=== PATIENT | female | born 1960 | race Caucasian/White ===

== ENCOUNTER 2018-10-19 15:19 | Inpatient (IN) | payer OTHER ==
[~2018-10-19] VITALS: Ht 160 cm; Wt 62.2 kg
[~2018-10-19 15:19] MED LIST: ACET325T33 PO; CALC600T24 PO; CALC600T5 PO; CIPR-193 PO; LISI-313 PO; OLAN2.5T28 PO
[2018-10-19 17:27] VITALS: BP 134/85; RESP 18
[2018-10-19] MEDS ORDERED: NACL 0.9% 3 ML SYG IV SCH (17:30)
[2018-10-19] MEDS ORDERED: HYDROCODONE/APAP (5/325) TAB PO PRN (17:30)
[2018-10-19] MEDS ORDERED: morphine 2 MG INJ IV PRN (17:30)
[2018-10-19] MEDS ORDERED: ONDANSETRON 4 MG INJ IV PRN (17:30)
[2018-10-19] MEDS ORDERED: DOCUSATE SODIUM 100 MG CAP PO PRN (17:30)
[2018-10-19] MEDS ORDERED: ACETAMINOPHEN 325 MG TAB PO PRN (17:30)
[2018-10-19] MEDS ORDERED: LORAZEPAM 2 MG INJ IV ONE (18:00)
[2018-10-19] MEDS ORDERED: LABETALOL HCL 20MG INJ IV PRN (18:00)
[2018-10-19] MEDS ORDERED: HALOPERIDOL 5 MG INJ IM PRN (18:00)
--- NOTE | 2018-10-19 18:00 | HP ---
Date/Time of Note Date/Time of Note DATE: 10/19/18 TIME: 17:50 Assessment/Plan VTE Prophylaxis SCD contraindicated: low risk/ambulating Pharmacological prophylaxis: NA/contraindicated Pharm contraindication: low risk/ambulating Assessment/Plan Hospital Course Chief complaint Altered mental status History present illness this is a 58-year-old patient female who was apparently in her usual state of health. Her neighbors found her to be agitated altered over the last 2 days. Apparently today she was looking for her room. Unable to concentrate on answering questions. I am unable to contact the neighbor or her son for details. Patient is awake alert but not following commands due to agitation. Try to get out of bed. Presently I just met with her daughter. No recent travel injuries. No recent doctor visits. Patient does not really take any medicines except for vitamins. A week ago patient had a mechanical fall and hit her leg but there is no syncope or head injury. Patient usually uses a wheelchair. At [place] [facility] signs are stable CAT scan of the brain did not show any acute process. Potassium a little low. Ketones little high. PMH Stroke 15 years ago post fall Hypertension on diet controlled measures Past surgical history Hardware fracture from her fall; lower extremity Social history No noted drugs alcohol Family history Daughter states mom had cancer Father heart disease has to get an elderly age. Review of systems Unable to ascertain due to patient cooperation Home medications To be determined PE No pallor possible mild droop no adenopathy no carotid bruits Regular no mrg Clear Benign No edema Neuro patient not cooperating with exam due to agitation but appears grossly nonfocal. Assessment and plan 1. Acute agitation, unknown etiology. CAT scan negative for any bleed. No evidence of seizure activity or tongue bite. Consult neurology. Check B12 level start Zyprexa. Urine tox screen unremarkable from [facility] 2. History of stroke 3. Debility 4. Chronic hypertension, consider hypertensive encephalopathy HPI/ROS Admit Date/Time Admit Date/Time Oct 19, 2018 at 16:44 PMH/Family/Social Past Medical History Medications Current Medications Sodium Chloride 1,000 ml @ 100 mls/hr Q10H IV ; Start 10/19/18 at 17:17; Status UNV IV Flush (NS 3 ml) 3 ml PER PROTOCOL IV ; Start 10/19/18 at 17:30; Status UNV Ondansetron HCl (Zofran Inj) 4 mg Q6H PRN IV NAUSEA/VOMITING; Start 10/19/18 at 17:30; Status UNV Acetaminophen (Tylenol Tab) 650 mg Q6H PRN PO .PAIN 1-3 OR TEMP; Start 10/19/18 at 17:30; Status UNV Acetaminophen/ Hydrocodone Bitart ([place] (5/325)) 1 tab Q6H PRN PO .MOD PAIN 4- 6; Start 10/19/18 at 17:30; Status UNV Morphine Sulfate (morphine) 2 mg Q4H PRN IV .SEVERE PAIN 7-10; Start 10/19/18 at 17:30; Status UNV Docusate Sodium (Colace) 100 mg Q12H PRN PO .CONSTIPATION; Start 10/19/18 at 17:30; Status UNV Famotidine (Pepcid) 20 mg Q12 PO ; Start 10/19/18 at 21:00; Status UNV Enoxaparin Sodium (Lovenox) 40 mg DAILY SC ; Start 10/20/18 at 09:00; Status UNV Coded Allergies: No Known Allergies (Verified Adverse Reaction, 11/01/12) Exam/Review of Systems Vital Signs Vitals Vital Signs Date Temp Pulse Resp B/P (MAP) Pulse Ox O2 O2 Flow FiO2 Time Delivery Rate 10/19/18 98.0 18 134/85 92 Room Air 17:27 (101) DAVID MCGHEE MD Oct 19, 2018 18:00
[2018-10-19 19:16] VITALS: BP 111/48; PULSE 100; RESP 18
[2018-10-19] MEDS: SOD CHLORIDE 0.9% 1,000 ML IV SCH (20:29)
[2018-10-19] MEDS: OLANZAPINE 2.5 MG TAB PO SCH (21:09)
[2018-10-19] MEDS: FAMOTIDINE 20 MG TAB PO SCH (21:09)
[2018-10-19 21:35] VITALS: Ht 160 cm; Wt 62.2 kg
[2018-10-19 23:29] VITALS: BP 148/78; PULSE 99; RESP 18
[2018-10-20] MEDS: SOD CHLORIDE 0.9% 1,000 ML IV SCH ×2 (03:17→05:29)
[2018-10-20 03:21] VITALS: BP 137/60; PULSE 71; RESP 18
[2018-10-20 07:39] VITALS: BP 136/63; PULSE 65; RESP 19
[2018-10-20] MEDS: FAMOTIDINE 20 MG TAB PO SCH (09:20)
[2018-10-20] MEDS: OLANZAPINE 2.5 MG TAB PO SCH ×2 (09:20→20:57)
[2018-10-20] MEDS: ENOXAPARIN 40 MG/0.4 ML SYG SC SCH (09:25)
[2018-10-20 11:35] VITALS: BP 130/61; PULSE 77; RESP 19
--- NOTE | 2018-10-20 17:58 | PN ---
Date/Time of Note Date/Time of Note DATE: 10/20/18 TIME: 17:56 Assessment/Plan VTE Prophylaxis Risk score (from Ns)>0 risk: 1 SCD applied (from Ns): Yes SCD contraindicated: low risk/ambulating Pharmacological prophylaxis: LMWH Lines/Catheters IV Catheter Type (from Nrs): Peripheral IV Assessment/Plan Hospital Course Assessment and plan 1. Ac agitation/ psychosis, ukn etio. CT negative for bleed. No seizure/ tongue bite. Consulted neurology. start Zyprexa. 2. History of stroke 3. Debility 4. Chr hypertension, consider hypertensive encephalopathy S: Less agitation. Awake alert follows commands. O: Vital signs stable PE No pallor; mild droop likely old Regular no mrg Clear Benign No edema Neuro patient not cooperating with exam due to agitation but appears grossly nonfocal. Result Diagram: 10/20/18 0710/20/18725 Results 24hrs Laboratory Tests Test 10/19/18 18:52 10/20/18 07:17 10/20/18 07:26 Folate > 20.0 H Rapid Plasma Reagin NONREACTIVE White Blood Count 6.5 Red Blood Count 4.53 Hemoglobin 14.5 Hematocrit 45.1 Mean Corpuscular Volume 99.6 Mean Corpuscular Hemoglobin 32.0 Mean Corpuscular Hemoglobin Concent 32.2 Red Cell Distribution Width 11.7 Platelet Count 256 Mean Platelet Volume 10.4 Immature Granulocytes % 0.200 Neutrophils % 66.5 Lymphocytes % 18.1 Monocytes % 11.1 H Eosinophils % 3.5 Basophils % 0.6 Nucleated Red Blood Cells % 0.0 Immature Granulocytes # 0.010 Neutrophils # 4.3 Lymphocytes # 1.2 Monocytes # 0.7 Eosinophils # 0.2 Basophils # 0.0 Nucleated Red Blood Cells # 0.0 Prothrombin Time 12.4 Prothrombin Time Ratio 1.0 INR International Normalized Ratio 0.91 Sodium Level 141 Potassium Level 3.6 Chloride Level 109 Carbon Dioxide Level 30 Anion Gap 2 L Blood Urea Nitrogen 13 Creatinine 0.62 Est Glomerular Filtrat Rate mL/min > 60 Glucose Level 88 Hemoglobin A1c 5.4 Calcium Level 9.2 Total Bilirubin 0.7 Direct Bilirubin 0.00 Indirect Bilirubin 0.7 Aspartate Amino Transf (AST/SGOT) 30 Alanine Aminotransferase (ALT/SGPT) 26 Alkaline Phosphatase 141 H Total Protein 7.8 Albumin 3.9 Globulin 3.90 H Albumin/Globulin Ratio 1.00 Vitamin B12 Level 383 Thyroid Stimulating Hormone (TSH) 2.550 Exam/Review of Systems Exam Vitals Vital Signs Date Temp Pulse Resp B/P (MAP) Pulse Ox O2 O2 Flow FiO2 Time Delivery Rate 10/20/18 97.6 77 19 130/61 99 Room Air 11:35 (84) Intake and Output 10/19/18 10/19/18 10/20/18 1515:00 23:00 07:00 IntakeIntake Total 120 ml 1020 ml BalanceBalance 120 ml 1020 ml Results Results 24hrs Laboratory Tests Test 10/19/18 18:52 10/20/18 07:17 10/20/18 07:26 Folate > 20.0 H Rapid Plasma Reagin NONREACTIVE White Blood Count 6.5 Red Blood Count 4.53 Hemoglobin 14.5 Hematocrit 45.1 Mean Corpuscular Volume 99.6 Mean Corpuscular Hemoglobin 32.0 Mean Corpuscular Hemoglobin Concent 32.2 Red Cell Distribution Width 11.7 Platelet Count 256 Mean Platelet Volume 10.4 Immature Granulocytes % 0.200 Neutrophils % 66.5 Lymphocytes % 18.1 Monocytes % 11.1 H Eosinophils % 3.5 Basophils % 0.6 Nucleated Red Blood Cells % 0.0 Immature Granulocytes # 0.010 Neutrophils # 4.3 Lymphocytes # 1.2 Monocytes # 0.7 Eosinophils # 0.2 Basophils # 0.0 Nucleated Red Blood Cells # 0.0 Prothrombin Time 12.4 Prothrombin Time Ratio 1.0 INR International Normalized Ratio 0.91 Sodium Level 141 Potassium Level 3.6 Chloride Level 109 Carbon Dioxide Level 30 Anion Gap 2 L Blood Urea Nitrogen 13 Creatinine 0.62 Est Glomerular Filtrat Rate mL/min > 60 Glucose Level 88 Hemoglobin A1c 5.4 Calcium Level 9.2 Total Bilirubin 0.7 Direct Bilirubin 0.00 Indirect Bilirubin 0.7 Aspartate Amino Transf (AST/SGOT) 30 Alanine Aminotransferase (ALT/SGPT) 26 Alkaline Phosphatase 141 H Total Protein 7.8 Albumin 3.9 Globulin 3.90 H Albumin/Globulin Ratio 1.00 Vitamin B12 Level 383 Thyroid Stimulating Hormone (TSH) 2.550 Medications Medication Current Medications Sodium Chloride 1,000 ml @ 100 mls/hr Q10H IV Last administered on 10/20/18at 05:29; Admin Dose 100 MLS/HR; Start 10/19/18 at 17:17 IV Flush (NS 3 ml) 3 ml PER PROTOCOL IV ; Start 10/19/18 at 17:30 Ondansetron HCl (Zofran Inj) 4 mg Q6H PRN IV NAUSEA/VOMITING; Start 10/19/18 at 17:30 Acetaminophen (Tylenol Tab) 650 mg Q6H PRN PO .PAIN 1-3 OR TEMP; Start 10/19/18 at 17:30 Acetaminophen/ Hydrocodone Bitart ([place] (5/325)) 1 tab Q6H PRN PO .MOD PAIN 4- 6; Start 10/19/18 at 17:30 Morphine Sulfate (morphine) 2 mg Q4H PRN IV .SEVERE PAIN 7-10; Start 10/19/18 at 17:30 Docusate Sodium (Colace) 100 mg Q12H PRN PO .CONSTIPATION; Start 10/19/18 at 17:30 Famotidine (Pepcid) 20 mg Q12 PO Last administered on 10/20/18at 09:20; Admin Dose 20 MG; Start 10/19/18 at 21:00 Enoxaparin Sodium (Lovenox) 40 mg DAILY SC Last administered on 10/20/18at 09:25; Admin Dose 40 MG; Start 10/20/18 at 09:00 Haloperidol (Haldol) 5 mg Q8H PRN IM AGITATION/ANXIETY; Start 10/19/18 at 18:00 Labetalol HCl (Labetalol) 10 mg Q4H PRN IV ELEVATED SYSTOLIC BP; Start 10/19/18 at 18:00 Olanzapine (Zyprexa) 2.5 mg BID PO Last administered on 10/20/18at 09:20; Admin Dose 2.5 MG; Start 10/19/18 at 21:00 DAVID MCGHEE MD Oct 20, 2018 17:58
[2018-10-20] MEDS: LISINOPRIL 5 MG TAB PO SCH (18:14)
[2018-10-20 20:12] VITALS: BP 131/62; PULSE 72; RESP 20
[2018-10-21 00:13] VITALS: BP 98/57; PULSE 67; RESP 18
[2018-10-21 02:16] VITALS: BP 106/64; PULSE 71; RESP 18
[2018-10-21 07:57] VITALS: BP 96/53; PULSE 71; RESP 18
[2018-10-21] MEDS: LISINOPRIL 5 MG TAB PO SCH (09:00)
[2018-10-21] MEDS: FAMOTIDINE 20 MG TAB PO SCH (09:49)
[2018-10-21] MEDS: ENOXAPARIN 40 MG/0.4 ML SYG SC SCH (09:50)
[2018-10-21] MEDS: OLANZAPINE 2.5 MG TAB PO SCH ×2 (10:22→20:20)
--- NOTE | 2018-10-21 12:09 | PDOCDIS ---
Discharge Instructions CONDITION [id number] Patient Condition: [id number] Stable HOME CARE INSTRUCTIONS: [id number] Diet Instructions: [id number] y Do not Drive FOLLOW UP/APPOINTMENTS Follow-up Plan appt Primary 1wk Dr Chávez 1wk DAVID MCGHEE MD Oct 21, 2018 12:09
[2018-10-21 13:53] VITALS: BP 105/53; PULSE 86; RESP 18
--- NOTE | 2018-10-21 16:35 | DS ---
Date/Time of Note Date/Time of Note DATE: 10/21/18 TIME: 16:32 Discharge Summary Admission/Discharge Info Admit Date/Time Oct 19, 2018 at 16:44 Discharge Date/Time Patient Condition: Stable Procedures Chest x-ray No acute process Labs No acute process Hx of Present Illness 58-year-old female admitted with acute psychosis agitation Hospital Course Hospital course Admitted with acute agitation/ psychosis. [facility] CT Brain did not show any acute process. Patient was reevaluated for 48 hours here. Over the last 48 hours her symptoms have improved. She has no visual or auditory hallucinations. awake alert follows commands. Eating ambulating without any issues. I updated daughter. Likely has acute psychosis of unknown etiology. Stable for discharge. May visit neurology in the future if it reoccurs. I will discharge her home on a short course of Zyprexa. Assessment and plan 1. Ac agitation/ psychosis, ukn etio. CT negative for bleed. No seizure/ tongue bite. started Zyprexa. 2. History of stroke 3. Debility 4. Chr hypertension, consider hypertensive encephalopathy 5. Lt lwr ext hardware Home Meds Active Scripts Olanzapine* (Zyprexa*) 2.5 Mg Tablet, 2.5 MG PO BID for 14 Days, #30 TAB Prov:ADVID MCGHEE MD 10/21/18 Acetaminophen* (Tylenol*) 325 Mg Tablet, 650 MG PO Q6H PRN for .PAIN 1-3 OR TEMP for 5 Days, TAB Prov:DAVID MCGHEE MD 10/21/18 Lisinopril* (Lisinopril*) 5 Mg Tablet, 2.5 MG PO DAILY for 10 Days, #10 TAB Prov:DAVID MCGHEE MD 10/21/18 Reported Medications Calcium Carbonate (CALCIUM) 600 Mg Tablet, 500 MG PO 09/18/12 Follow-up Plan appt Primary 1wk Dr Chávez 1wk Primary Care Provider Nathaniel Maurice MD Time spent on discharge: > 30 minutes DAVID MCGHEE MD Oct 21, 2018 16:35
[2018-10-21 19:10] VITALS: BP 106/58; PULSE 90; RESP 18
[2018-10-22 02:22] VITALS: BP 110/51; PULSE 83; RESP 18
[2018-10-22 08:28] VITALS: BP 121/62; PULSE 81; RESP 18
[2018-10-22] MEDS: OLANZAPINE 2.5 MG TAB PO SCH (09:00)
[2018-10-22] MEDS: LISINOPRIL 5 MG TAB PO SCH (09:06)
[2018-10-22] MEDS: FAMOTIDINE 20 MG TAB PO SCH (09:06)
[2018-10-22] MEDS: ENOXAPARIN 40 MG/0.4 ML SYG SC SCH (09:08)
--- NOTE | 2018-10-22 10:41 | CONSI ---
Assessment/Plan Assessment/Plan Assessment/Plan (Recall) 58 M c/ remote stroke, who presents for evaluation of reported ams/agitation.. The clinical picture could be consistent w/ an acute toxic-metabolic encephalopathy.. 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 OSH Head CT was reportedly unrevealing. UA never completed.. P: Add UA Consider asa daily for secondary stroke prevention given Hx.. [place] as necessary Limit sedating medications where possible PT/OT/ST as necessary Other management and supportive care per primary Consultation Date/Type/Reason Admit Date/Time Oct 19, 2018 at 16:44 Type of Consult Neurology Reason for Consultation ams Requesting Provider: DAVID MCGHEE MD Date/Time of Note DATE: 10/22/18 TIME: 10:31 Hx of Present Illness Patient is a poor historian. She is presently without complaints and desiring to go home. It is elsewhere noted: She is a 58-year-old patient female who was apparently in her usual state of health. Her neighbors found her to be agitated altered over the last 2 days. Apparently today she was looking for her room. Unable to concentrate on answer ing questions. I am unable to contact the neighbor or her son for details. Patient is awake alert but not following commands due to agitation. Try to get out of bed. Presently I just met with her daughter. No recent travel injuries. No recent doctor visits. Patient does not really take any medicines except for vitamins. A week ago patient had a mechanical fall and hit her leg but there is no syncope or head injury. Patient usually uses a wheelchair. At [place] ER signs are stable CAT scan of the brain did not show any acute process. Potassium a little low. Ketones little high. per HPI Objective Exam Vitals Vital Signs Date Temp Pulse Resp B/P (MAP) Pulse Ox O2 O2 Flow FiO2 Time Delivery Rate 10/22/18 98.3 81 18 121/62 100 08:28 (81) 10/22/18 Room Air 02:22 Intake and Output 10/21/18 10/21/18 10/22/18 1515:00 23:00 07:00 IntakeIntake Total 500 ml 500 ml 200 ml BalanceBalance 500 ml 500 ml 200 ml Exam PE: Gen Appearance: No Apparent Distress HEENT: Normocephalic Cardiovascular: Regular rate Abdomen: Soft Extremities: Dry NE: The patient was alert and oriented to person. Language was normal. Fund of knowledge was somewhat limited.. Pupils were equal and reactive to light. There was no afferent pupillary defect. Visual pierson were normal. Funduscopic examination was limited. Extra-ocular movements were full. Ptosis was absent. There was no nystagmus. Facial sensation was normal. Face was symmetric with normal strength. Hearing was intact. Palate movements were normal. Neck strength was normal. There was normal tongue bulk and speed of movement. Speech was mildly dysarthric. Tone was normal. Muscle bulk was normal. I did not see fasciculations. Arms and legs were symmetric. Vibration sensation was normal. Temperature and pinprick sensation was normal. Rapid alternating movements were normal. There was no dysmetria. There was no intention tremor. Gait was deferred due to bedrest. Arm and leg reflexes were symmetric. Tse's sign was absent. Plantar responses were flexor. Results Result Diagram: 10/20/18 0726 10/20/18 0726 Past Medical History reviewed Home Meds Active Scripts Olanzapine* (Zyprexa*) 2.5 Mg Tablet, 2.5 MG PO BID for 14 Days, #30 TAB Prov:DAVID MCGHEE MD 10/21/18 Acetaminophen* (Tylenol*) 325 Mg Tablet, 650 MG PO Q6H PRN for .PAIN 1-3 OR TEMP for 5 Days, TAB Prov:DAVID MCGHEE MD 10/21/18 Lisinopril* (Lisinopril*) 5 Mg Tablet, 2.5 MG PO DAILY for 10 Days, #10 TAB Prov:DAVID MCGHEE MD 10/21/18 Reported Medications Calcium Carbonate (CALCIUM) 600 Mg Tablet, 500 MG PO 09/18/12 Medications Current Medications IV Flush (NS 3 ml) 3 ml PER PROTOCOL IV ; Start 10/19/18 at 17:30 Ondansetron HCl (Zofran Inj) 4 mg Q6H PRN IV NAUSEA/VOMITING; Start 10/19/18 at 17:30 Acetaminophen (Tylenol Tab) 650 mg Q6H PRN PO .PAIN 1-3 OR TEMP; Start 10/19/18 at 17:30 Acetaminophen/ Hydrocodone Bitart ([place] (5/325)) 1 tab Q6H PRN PO .MOD PAIN 4- 6; Start 10/19/18 at 17:30 Morphine Sulfate (morphine) 2 mg Q4H PRN IV .SEVERE PAIN 7-10; Start 10/19/18 at 17:30 Docusate Sodium (Colace) 100 mg Q12H PRN PO .CONSTIPATION; Start 10/19/18 at 17:30 Enoxaparin Sodium (Lovenox) 40 mg DAILY SC Last administered on 10/22/18at 09: 08; Admin Dose 40 MG; Start 10/20/18 at 09:00 Haloperidol (Haldol) 5 mg Q8H PRN IM AGITATION/ANXIETY; Start 10/19/18 at 18:00 Labetalol HCl (Labetalol) 10 mg Q4H PRN IV ELEVATED SYSTOLIC BP; Start 10/19/18 at 18:00 Olanzapine (Zyprexa) 2.5 mg BID PO Last administered on 10/21/18at 10:22; Admin Dose 2.5 MG; Start 10/19/18 at 21:00 Famotidine (Pepcid) 20 mg DAILY PO Last administered on 10/22/18at 09:06; Admin Dose 20 MG; Start 10/21/18 at 09:00 Lisinopril (Zestril) 2.5 mg DAILY PO Last administered on 10/22/18at 09:06; Admin Dose 2.5 MG; Start 10/20/18 at 18:00 Allergies: Coded Allergies: No Known Allergies (Verified Allergy, Unknown, 10/19/18) Past Surgical History reviewed Social History reviewed Drug Use: none JB RUTHERFORD Oct 22, 2018 10:40
[2018-10-22 14:00] VITALS: BP 118/58; PULSE 100; RESP 18
--- NOTE | 2018-10-22 15:46 | DS ---
Date/Time of Note Date/Time of Note DATE: 10/22/18 TIME: 15:43 Discharge Summary Admission/Discharge Info Admit Date/Time Oct 19, 2018 at 16:44 Discharge Date/Time October 22, 2018 Discharge Diagnosis 1. Acute agitation/psychosis-resolved CT negative for bleed. No seizure/ tongue bite. 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 History of stroke 3. Debility 4. Chronic hypertension, continue meds Patient Condition: Good Hospital Course Patient is a 58-year-old female who was admitted with acute agitation/ psychosis. [facility] CT Brain did not show any acute process. Patient was reevaluated for 48 hours here. Over the last 48 hours her symptoms have improved. She has no visual or auditory hallucinations. awake alert follows commands. Eating ambulating without any issues. Prior hospitalist did update daughter. Likely has acute psychosis of unknown etiology. May visit neurology in the future if it reoccurs. I will discharge her home on a short course of Zyprexa. Social work consultation was obtained and family has decided to help care for patient. Patient stable for DC, on the day of discharge patient's vitals, labs and physical exam are stable. Home Meds Active Scripts Olanzapine* (Zyprexa*) 2.5 Mg Tablet, 2.5 MG PO BID for 14 Days, #30 TAB Prov:DAVID MCGHEE MD 10/21/18 Acetaminophen* (Tylenol*) 325 Mg Tablet, 650 MG PO Q6H PRN for .PAIN 1-3 OR TEMP for 5 Days, TAB Prov:DAVID MCGHEE MD 10/21/18 Lisinopril* (Lisinopril*) 5 Mg Tablet, 2.5 MG PO DAILY for 10 Days, #10 TAB Prov:DAVID MCGHEE MD 10/21/18 Reported Medications Calcium Carbonate (CALCIUM) 600 Mg Tablet, 500 MG PO 09/18/12 Follow-up Plan appt Primary 1wk Dr Chávez 1wk Primary Care Provider Nathaniel Maurice MD Time spent on discharge: > 30 minutes NINO RIZZO Oct 22, 2018 15:46
== END 2018-10-22 16:20 | disposition home or self-care (01) | DRG 885 ==
LOC: TEL 16:44 → MS3 10-20 23:56
PROVIDERS: ADMIT Internal Medicine; ATTEND Internal Medicine
DX: F23 Brief psychotic disorder (principal); Z86.73 Personal history of transient ischemic attack (TIA), and cerebral infarction without residual deficits; I10 Essential (primary) hypertension
CPT/HCPCS: 71045; 80053; 81003; 82607; 82746; 83036; 84443; 85025; 85610; 86592; J1650; J7030

== ENCOUNTER 2018-10-26 08:14 | Observation (INO) | payer OTHER ==
[~2018-10-26] VITALS: Ht 162.6 cm; Wt 70.0 kg
[2018-10-26] MEDS ORDERED: SOD CHLORIDE 0.9% 1,000 ML IV STA (08:42)
--- NOTE | 2018-10-26 10:01 | ERD ---
ER Documentation Chief Complaint Chief Complaint PT BIB DAUGHTER ALTERED, SHAKING, PT SEEN 10-19-18 WITH SAME HPI 58-year-old female who is wheelchair dependent who presents to the emergency room with transient altered mental status versus fainting. This morning the patient was found on the ground confused. Patient has slowly improved back to baseline. She was recently admitted on October 19 for similar transient encephalopathy that improved. However over the last 4 days the patient has not been herself she has been very weak unable to get out of her wheelchair. The patient does not recall events. She has no pain currently. Family is noted a resting tremor. Patient denies any headache chest pain or shortness of breath. She denies any injuries from falling down. ROS All systems reviewed and are negative except as per history of present illness. Medications Home Meds Active Scripts Olanzapine* (Zyprexa*) 2.5 Mg Tablet, 2.5 MG PO BID for 14 Days, #30 TAB Prov:DAVID MCGHEE MD 10/21/18 Acetaminophen* (Tylenol*) 325 Mg Tablet, 650 MG PO Q6H PRN for .PAIN 1-3 OR TEMP for 5 Days, TAB Prov:DAVID MCGHEE MD 10/21/18 Lisinopril* (Lisinopril*) 5 Mg Tablet, 2.5 MG PO DAILY for 10 Days, #10 TAB Prov:DAVID MCGHEE MD 10/21/18 Reported Medications Calcium Carbonate* (Calcium Carbonate*) 600 MG Ca Tab, 600 MG PO BID, TAB 10/26/18 Discontinued Reported Medications Calcium Carbonate (CALCIUM) 600 Mg Tablet, 500 MG PO 09/18/12 Allergies Allergies: Coded Allergies: No Known Allergies (Verified Allergy, Unknown, 10/26/18) PMhx/Soc History of Surgery: No Anesthesia Reaction: No Hx Neurological Disorder: Yes (Stroke?) Hx Respiratory Disorders: No Hx Cardiac Disorders: Yes (HTN) Hx Psychiatric Problems: No Hx Miscellaneous Medical Probl: No Hx Alcohol Use: No Hx Substance Use: No Hx Tobacco Use: No Smoking Status: Never smoker FmHx Family History: No diabetes Physical Exam Vitals Vital Signs Date Temp Pulse Resp B/P (MAP) Pulse Ox O2 O2 Flow FiO2 Time Delivery Rate 10/26/18 73 20 113/76 97 Room Air 10:25 (88) 10/26/18 97.6 76 18 174/77 98 08:18 (109) Physical Exam General: Well developed, well nourished, no acute distress Head: Normocephalic, atraumatic. Eyes: Pupils equally reactive, EOM intact ENT: Moist mucous membranes Neck: Supple, no lymphadenopathy Respiratory: Lungs clear bilaterally, no distress Cardiovascular: RRR, no murmurs, rubs, or gallops Abdominal: Soft, non-tender, non-distended, no peritoneal signs : Deferred MSK: No edema, no unilateral swelling, 5/5 strength Neurologic: Resting tremor, moving all extremities but generally weak. Garbled speech but appears to be at baseline Skin: No rash Psych: Normal mood Result Diagram: 10/26/18 0850 10/26/18 0850 Results 24 hrs Laboratory Tests Test 10/26/18 08:50 10/26/18 09:04 10/26/18 10:00 White Blood Count 6.2 10^3/ul Red Blood Count 4.37 10^6/ul Hemoglobin 14.1 g/dl Hematocrit 42.8 % Mean Corpuscular Volume 97.9 fl Mean Corpuscular Hemoglobin 32.3 pg Mean Corpuscular 32.9 g/dl Hemoglobin Concent Red Cell Distribution Width 11.5 % Platelet Count 279 10^3/UL Mean Platelet Volume 10.1 fl Immature Granulocytes % 0.200 % Neutrophils % 72.6 % Lymphocytes % 15.5 % Monocytes % 8.8 % Eosinophils % 2.4 % Basophils % 0.5 % Nucleated Red Blood Cells % 0.0 /100WBC Immature Granulocytes # 0.010 10^3/ul Neutrophils # 4.5 10^3/ul Lymphocytes # 1.0 10^3/ul Monocytes # 0.6 10^3/ul Eosinophils # 0.2 10^3/ul Basophils # 0.0 10^3/ul Nucleated Red Blood Cells # 0.0 10^3/ul Sodium Level 142 mmol/L Potassium Level 3.9 mmol/L Chloride Level 105 mmol/L Carbon Dioxide Level 31 mmol/L Anion Gap 6 Blood Urea Nitrogen 15 mg/dl Creatinine 0.60 mg/dl Est Glomerular Filtrat > 60 mL/min Rate mL/min Glucose Level 105 mg/dl Calcium Level 9.5 mg/dl Total Bilirubin 0.6 mg/dl Direct Bilirubin 0.00 mg/dl Indirect Bilirubin 0.6 mg/dl Aspartate Amino 39 IU/L Transf (AST/SGOT) Alanine 53 IU/L Aminotransferase (ALT/SGPT) Alkaline Phosphatase 174 IU/L Troponin I < 0.012 ng/ml Total Protein 8.1 g/dl Albumin 4.0 g/dl Globulin 4.10 g/dl Albumin/Globulin Ratio 0.97 Free Thyroxine Index 2.79 ug/ml Thyroxine (T4) 8.9 ug/dl Triiodothyronine (T3) Uptake 31.3 % Ethyl Alcohol Level < 10.0 mg/dl Bedside Glucose 105 mg/dL Urine Color YELLOW Urine Clarity CLOUDY Urine pH 8.0 Urine Specific [place] 1.012 Urine Ketones TRACE mg/dL Urine Nitrite NEGATIVE mg/dL Urine Bilirubin NEGATIVE mg/dL Urine Urobilinogen NEGATIVE mg/dL Urine Leukocyte Esterase TRACE Marbin/ul Urine Microscopic RBC 3 /HPF Urine Microscopic WBC 4 /HPF Urine Squamous Epithelial Cells FEW /HPF Urine Amorphous Crystals MANY /HPF Urine Bacteria FEW /HPF Urine Hemoglobin 1+ mg/dL Urine Glucose NEGATIVE mg/dL Urine Total Protein NEGATIVE mg/dl Urine Opiates Screen Negative Urine Barbiturates Negative Urine Amphetamines Screen Negative Urine Benzodiazepines Screen Negative Urine Cocaine Screen Negative Urine Cannabinoids Negative Current Medications Medications Dose Sig/Jennifer Start Time Status Last (Trade) Ordered Route PRN Stop Time Admin Dose Reason Admin Sodium 1,000 ml @ Q1H STAT 10/26/18 DC 10/26/18 Chloride 1,000 mls/hr IV 08:42 08:59 10/26/18 09:41 Ondansetron 4 mg ER BRIDGE 10/26/18 HCl (Zofran PRN IV 11:00 Inj) NAUSEA/VOMITI 10/27/18 10:59 NG 650 mg ER BRIDGE 10/26/18 Acetaminophen PRN PO 11:00 (Tylenol .MILD PAIN 10/27/18 10:59 Tab) 1-3 OR TEMP Procedures/MDM EKG, MONITORS, & DIAGNOSTIC IMAGING: EKG: I reviewed and interpreted a 12-lead EKG. Rhythm: Normal sinus rhythm ST Changes: No contiguous ST segment elevations T waves: No contiguous T wave inversions Impression: No evidence of acute cardiac ischemia Chest x-ray: I reviewed and interpreted a 1 view of the chest Mediastinum: No enlargement Cardiac silhouette: No cardiomegaly Airspace: Clear lung pierson bilaterally without evidence of pneumothorax Bones: No evidence of fracture CT brain: IMPRESSION: 1. The intracranial contents are without significant interval change compared to the patient's prior CT scan from October 19, 2018. 2. Mild diffuse cerebral and moderate cerebellar volume loss. LAB INTERPRETATION: I reviewed the laboratory testing and it shows no evidence of acute process MEDICAL DECISION MAKING: The patient presents with a transient episode of altered mental status. Patient has been generally weak. Recent hospitalization was nonspecific and possibly consistent with psychosis or psychotic event. However, the patient has a presentation today that is possibly consistent with syncope versus seizure. The patient is clearly declining and deteriorating neurologically at home. This raises the concern for possible demyelinating process such as MS. ER COURSE: * Laboratory testing and diagnostic imaging is otherwise unremarkable. The patient will be admitted for further monitoring, work-up and neurology co nsultation CONSULTATION: None DISPOSITION PLAN: Accepting care team and consultations: I discussed the current laboratory data, diagnostic imaging and emergency care provided. Admitting team: Dr. Rodriguez Admitting team indication: Insurance directed Departure Diagnosis: Primary Impression: Altered level of consciousness Condition: Stable TATIANA SANDERS MD Oct 26, 2018 10:01
[2018-10-26] MEDS ORDERED: ONDANSETRON 4 MG INJ IV PRN ×2 (11:00→12:30)
[2018-10-26] MEDS ORDERED: ACETAMINOPHEN 325 MG TAB PO PRN ×2 (11:00→12:30)
[2018-10-26] MEDS: SOD CHLORIDE 0.45% 1,000 ML IV SCH (12:06)
[2018-10-26] MEDS ORDERED: hydrALAzine 20 MG INJ IV PRN (12:30)
[2018-10-26] MEDS ORDERED: MAGNESIUM HYDROXIDE 30ML CUP PO PRN (12:30)
[2018-10-26] MEDS ORDERED: LORAZEPAM 2 MG INJ IV PRN ×2 (12:30→16:30)
[2018-10-26] MEDS ORDERED: NITROGLYCERIN (SL) 0.4 MG TAB SL PRN (12:30)
[2018-10-26] MEDS ORDERED: morphine 2 MG INJ IV PRN (12:30)
[2018-10-26] MEDS ORDERED: HYDROCODONE/APAP (5/325) TAB PO PRN (12:30)
[2018-10-26] MEDS ORDERED: ALBUTEROL/IPRATROPIUM (NEB) 3 ML AMP HHN PRN (12:30)
[2018-10-26] MEDS: ASPIRIN (EC) 325 MG TAB PO SCH (12:30)
[2018-10-26] MEDS ORDERED: NACL 0.9% 3 ML SYG IV SCH (12:30)
[2018-10-26] MEDS ORDERED: DOCUSATE SODIUM 100 MG CAP PO PRN (12:30)
--- NOTE | 2018-10-26 15:12 | HP ---
Date/Time of Note Date/Time of Note DATE: 10/26/18 TIME: 15:10 Assessment/Plan VTE Prophylaxis SCD applied (from Nsg): No SCD contraindicated: other Pharmacological prophylaxis: heparin Lines/Catheters IV Catheter Type (from Nrsg): Saline Lock Assessment/Plan Hospital Course Assessment and plan: 58-year-old female past medical history of hypertension, prior stroke 20 years ago, anxiety, debility wheelchair-bound for many years, who presents after having this morning was found on the ground confused. #Tremor/altered mental status/fall: Again unclear etiology of this. Patient on last admission was diagnosed with toxic metabolic encephalopathy. Her UA this admission shows mildly positive UTI as well. -Admit the patient, and will work-up for syncope and rule out stroke versus TIA by checking MRI of the brain, carotid Doppler study, 2D echo -Continue neurochecks, follow-up TSH, A1c, lipid panel -Consider high-dose aspirin x1 and statin x1 until we get further imaging studies back -There is also concern of seizure so in addition to neurochecks, will order for EEG #Simple UTI: Continue Rocephin for now follow-up final culture results, Tylenol PRN pain fevers Result Diagram: 10/26/18 0850 10/26/18 0850 Results 24hrs Laboratory Tests Test 10/26/18 08:50 10/26/18 09:04 10/26/18 10:00 10/26/18 10:50 White Blood Count 6.2 Red Blood Count 4.37 Hemoglobin 14.1 Hematocrit 42.8 Mean Corpuscular 97.9 Volume Mean Corpuscular 32.3 Hemoglobin Mean Corpuscular 32.9 Hemoglobin Concent Red Cell 11.5 Distribution Width Platelet Count 279 Mean Platelet Volume 10.1 Immature 0.200 Granulocytes % Neutrophils % 72.6 Lymphocytes % 15.5 Monocytes % 8.8 Eosinophils % 2.4 Basophils % 0.5 Nucleated Red Blood 0.0 Cells % Immature 0.010 Granulocytes # Neutrophils # 4.5 Lymphocytes # 1.0 Monocytes # 0.6 Eosinophils # 0.2 Basophils # 0.0 Nucleated Red Blood 0.0 Cells # Sodium Level 142 Potassium Level 3.9 Chloride Level 105 Carbon Dioxide Level 31 Anion Gap 6 Blood Urea Nitrogen 15 Creatinine 0.60 Est Glomerular > 60 Filtrat Rate mL/min Glucose Level 105 Calcium Level 9.5 Total Bilirubin 0.6 Direct Bilirubin 0.00 Indirect Bilirubin 0.6 Aspartate Amino 39 Transf (AST/SGOT) Alanine 53 Aminotransferase (AL T/SGPT) Alkaline Phosphatase 174 H Troponin I < 0.012 Total Protein 8.1 Albumin 4.0 Globulin 4.10 H Albumin/Globulin 0.97 Ratio Free Thyroxine Index 2.79 Thyroxine (T4) 8.9 Triiodothyronine 31.3 (T3) Uptake Ethyl Alcohol Level < 10.0 H Bedside Glucose 105 Urine Color YELLOW Urine Clarity CLOUDY A Urine pH 8.0 Urine Specific 1.012 [place] Urine Ketones TRACE A Urine Nitrite NEGATIVE Urine Bilirubin NEGATIVE Urine Urobilinogen NEGATIVE Urine Leukocyte TRACE A Esterase Urine Microscopic 3 RBC Urine Microscopic 4 WBC Urine Squamous FEW Epithelial Cells Urine Amorphous MANY A Crystals Urine Bacteria FEW A Urine Hemoglobin 1+ H Urine Glucose NEGATIVE Urine Total Protein NEGATIVE Urine Opiates Screen Negative Urine Barbiturates Negative Urine Amphetamines Negative Screen Urine Negative Benzodiazepines Screen Urine Cocaine Screen Negative Urine Cannabinoids Negative Prothrombin Time 12.1 Prothrombin Time 0.9 Ratio INR International 0.89 Normalized Ratio Activated 30.7 Partial Thromboplast Time Free Thyroxine 1.29 Test 10/26/18 13:15 Creatine Kinase 85 Creatine Kinase 0.7 Index Creatinine Kinase MB 0.60 (Mass) Troponin I < 0.012 HPI/ROS Admit Date/Time Admit Date/Time Hx of Present Illness 58-year-old female past medical history of hypertension, prior stroke 20 years ago, anxiety, debility wheelchair-bound for many years, who presents after having this morning was found on the ground confused. Patient has slowly improved back to baseline. Patient was recently admitted at our hospital 1 week ago for similar transient encephalopathy that improved. She was sent home with Zyprexa and was briefly seen by neurologist at that time who thoughts patient may be suffering from a toxic metabolic encephalopathy at that time. Family and patient state that the Zyprexa mildly help with sleeping symptoms but over the last 4 days the patient has not been herself she has been very weak unable to get out of her wheelchair. The patient does not recall events. No chest pain, shortness breath, upper lower GI bleeding, nausea vomiting, fever or chills. Apparently the family has also noticed a tremor, possibly on movements. Patient denies any headache. She denies any injuries from falling down. PMH/Family/Social Past Medical History Medications Current Medications Ondansetron HCl (Zofran Inj) 4 mg ER BRIDGE PRN IV NAUSEA/VOMITING; Start 10/26/18 at 11:00; Stop 10/27/18 at 10:59 Acetaminophen (Tylenol Tab) 650 mg ER BRIDGE PRN PO .MILD PAIN 1-3 OR TEMP; Start 10/26/18 at 11:00; Stop 10/27/18 at 10:59 IV Flush (NS 3 ml) 3 ml PER PROTOCOL IV ; Start 10/26/18 at 12:30 Ondansetron HCl (Zofran Inj) 4 mg Q6H PRN IV NAUSEA/VOMITING; Start 10/26/18 at 12:30 Acetaminophen (Tylenol Tab) 650 mg Q6H PRN PO .PAIN 1-3 OR TEMP; Start 10/26/18 at 12:30 Acetaminophen/ Hydrocodone Bitart (Odin (5/325)) 1 tab Q6H PRN PO .MOD PAIN 4- 6; Start 10/26/18 at 12:30 Morphine Sulfate (morphine) 2 mg Q4H PRN IV .SEVERE PAIN 7-10; Start 10/26/18 at 12:30 Docusate Sodium (Colace) 100 mg Q12H PRN PO .CONSTIPATION; Start 10/26/18 at 12:30 Magnesium Hydroxide (Milk Of Mag) 30 ml DAILY PRN PO .CONSTIPATION; Start 10/26/18 at 12:30 Heparin Sodium (Porcine) (Heparin (5000 Units/1ml)) 5,000 unit Q12 SC ; Start 10/26/18 at 21:00 Sodium Chloride 1,000 ml @ 75 mls/hr [id number] IV Last administered on 10/26/18at 12:06; Admin Dose 75 MLS/HR; Start 10/26/18 at 12:06 Lorazepam (Ativan) 0.5 mg Q6H PRN IV ANXIETY; Start 10/26/18 at 12:30 Albuterol/ Ipratropium (Duoneb) 3 ml Q4H RESP THERAPY PRN HHN SHORTNESS OF BR EATH; Start 10/26/18 at 12:30 Hydralazine HCl (Apresoline) 10 mg Q6H PRN IV ELEVATED BLOOD PRESSURE; Start 10/26/18 at 12:30 Nitroglycerin (Nitroglycerin (Sl Tab) 0.4 Mg) 1 tab Q5M PRN SL ANGINA; Start 10/26/18 at 12:30 Aspirin (Ecotrin) 325 mg DAILY PO ; Start 10/26/18 at 12:30 Miscellaneous Information 600 mg BID PO ; Start 10/26/18 at 21:00; Status UNV Coded Allergies: No Known Allergies (Verified Allergy, Unknown, 10/26/18) Past Surgical History Past Surgical Hx: other (Ankle surgery, lipoma removal) Social History Alcohol Use: none Smoking Status: Never smoker Drug Use: none Exam/Review of Systems Vital Signs Vitals Vital Signs Date Temp Pulse Resp B/P (MAP) Pulse Ox O2 O2 Flow FiO2 Time Delivery Rate 10/26/18 88 16 120/72 96 Room Air 12:07 (88) 10/26/18 97.6 08:18 Exam Exam General: Lying in bed,, no acute distress Head: Normocephalic, atraumatic. Eyes: Pupils equally reactive, EOM intact ENT: Moist mucous membranes Neck: Supple, no lymphadenopathy Respiratory: Lungs clear bilaterally, no distress Cardiovascular: RRR, no murmurs, rubs, or gallops Abdominal: Soft, non-tender, non-distended, no peritoneal signs MSK: No edema, no unilateral swelling Neurologic: Resting tremor, moving all extremities but generally weak. Garbled speech but appears to be at baseline LINDSEY YEPEZ Oct 26, 2018 15:12
[2018-10-26] MEDS ORDERED: CEFTRIAXONE 1 GM/50 ML (PMX) 50 ML IVPB SCH (15:30)
--- NOTE | 2018-10-26 15:55 | RADRPT ---
Echocardiogram Report Patient Name: ROSALIE KEENAPatient ID: [id number] : 1960 (58y 8m)Study Date: 10/26/2018 2:07:39 PM Gender: FAccession #: [id number] Tech: [place] [facility] Location: [facility] Ref.Physician: LINDSEY YEPEZ Height(Cm): BSA: Weight(Kg): Quality: AdequateOrder Physician: LINDSEY YEPEZ Account #: Procedures: Echocardiographic Report: Transthoracic echocardiogram with complete 2D, M-Mode, and doppler examination. Indications: Syncope. Measurements: 2D/M Mode Doppler Measurement Value Normal Range Measurement Value Normal Range LVIDd 2D 3.6 [ 3.8 - 5.2 ] cm AV Peak Melchor 1.5 [ 100.0 - 170.0 ] cm/sec LVIDs 2D 2.4 [ 2.2 - 3.5 ] cm AV Peak PG 9.0 [ 2.0 - 9.0 ] mmHg LVPWd 2D 0.7 [ 0.6 - 0.9 ] cm LVOT Peak Melchor 0.9 [ 70.0 - 110.0 ] cm/sec IVSd 2D 1.0 [ 0.6 - 0.9 ] cm LVOT Peak PG 3.0 [ 2.0 - 6.0 ] mmHg IVS/LVPW 2D 1.4 ratio MV E Peak Melchor 0.8 [ 60.0 - 130.0 ] cm/sec AoR Diam 2D 2.5 [ 2.3 - 3.1 ] cm MV A Peak Melchor 0.7 [ 100.0 - 120.0 ] cm/sec LA/Ao 2D 1 ratio MV E/A 1.2 [ 0.8 - 1.5 ] ratio LA Dimen 2D 3.0 [ 2.7 - 3.8 ] cm MV Decel Time 187 [ 104 - 258 ] msec MV E/A 1.2 [ 0.8 - 1.5 ] ratio TR Peak Melchor 2.3 [ 100.0 - 280.0 ] cm/sec TR Peak PG 22.0 mmHg Findings: Left Ventricle: Normal left ventricular systolic function. Normal left ventricular cavity size. Normal left ventricular wall thickness. Ejection fraction is visually estimated at 65 %. Tissue Doppler/Mitral Doppler indices are within normal limits. Right Ventricle: Normal right ventricular size. Normal right ventricular systolic function. Left Atrium: The left atrium is normal in size. Right Atrium: The right atrium is normal in size. Mitral Valve: Mild mitral leaflet calcification. Mild mitral annular calcification. Trace mitral regurgitation. Aortic Valve: No significant aortic stenosis or insufficiency. Aortic cusps appear mildly calcified. Tricuspid Valve: Normal appearance of the tricuspid valve. The estimated Peak RVSP is 25 mmHg. There is trace tricuspid regurgitation. Pericardium: Normal pericardium with no significant pericardial effusion. Aorta: Normal aortic root. IVC: Normal size and normal respiratory collapse consistent with normal right atrial pressure. Conclusions: Normal left ventricular systolic function. Normal left ventricular cavity size. Normal left ventricular wall thickness. Ejection fraction is visually estimated at 65 %. Tissue Doppler/Mitral Doppler indices are within normal limits. Mild mitral leaflet calcification. Mild mitral annular calcification. Trace mitral regurgitation. Normal appearance of the tricuspid valve. The estimated Peak RVSP is 25 mmHg. There is trace tricuspid regurgitation. Electronically Signed By: Jeffery Jarvis 2018-10-26 15:54:31 PDT
[2018-10-26] MEDS ORDERED: ASPIRIN (EC) 81 MG TAB PO ONE (16:30)
[2018-10-26] MEDS ORDERED: ATORVASTATIN 80 MG TAB PO ONE (16:30)
[2018-10-26 18:30] VITALS: Ht 162.6 cm; Wt 70.0 kg
[2018-10-26 20:00] VITALS: BP 117/59; PULSE 80; RESP 18
[2018-10-26] MEDS: HEPARIN 5,000 UNIT/1 ML VIAL SC SCH (21:58)
[2018-10-26 23:36] VITALS: BP 110/61; PULSE 81; RESP 17
[2018-10-27] MEDS: SOD CHLORIDE 0.45% 1,000 ML IV SCH (01:26)
[2018-10-27 04:01] VITALS: BP 122/61; PULSE 77; RESP 18
[2018-10-27 07:02] VITALS: BP 120/66; PULSE 72; RESP 20
[2018-10-27] MEDS ORDERED: CALCIUM CARBONATE 1.25 GM TAB PO SCH (09:00)
[2018-10-27] MEDS: ASPIRIN (EC) 325 MG TAB PO SCH (09:37)
[2018-10-27] MEDS: HEPARIN 5,000 UNIT/1 ML VIAL SC SCH (09:43)
[2018-10-27 10:56] VITALS: BP 107/69; PULSE 90; RESP 20
--- NOTE | 2018-10-27 13:01 | PDOCDIS ---
Discharge Instructions CONDITION [id number] Patient Condition: [id number] Stable HOME CARE INSTRUCTIONS: [id number] Diet Instructions: [id number] Low Fat /Cholesterol [id number] Special Diet: Giaxc7m Aspiration precautions ACTIVITY: [id number] Activity Restrictions: [id number] Slowly Increase Activity Rest between Activity Avoid heavy lifting FOLLOW UP/APPOINTMENTS Follow-up Plan Please take your medication as prescribed, see your doctor in clinic in the next 1 week. LINDSEY YEPEZ Oct 27, 2018 13:01
--- NOTE | 2018-10-27 13:12 | DS ---
Date/Time of Note Date/Time of Note DATE: 10/27/18 TIME: 13:03 Discharge Summary Admission/Discharge Info Admit Date/Time Oct 26, 2018 at 10:45 Discharge Date/Time Discharge Diagnosis #Tremor/altered mental status/fall: MRI brain negative for any stroke or brain bleeds. Tremor occasionally occurs at rest, and occasionally occurs on movement, unclear etiology; patient on last admission was diagnosed with toxic metabolic encephalopathy. # simple UTI # HTN # prior CVA #Debility: Wheelchair-bound for the last 20 years, possibly secondary to stroke that occurred 20 years ago Patient Condition: Stable Procedures A. MRI brain: IMPRESSION: 1. No cerebral infarction, mass, hemorrhage, or hydrocephalus. 2. Minimal to mild age-related microvascular change. 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 Multiple system atrophy is less likely as there is no significant atrophy of the brainstem. 4. No interval change B. Carotid Dopplers: IMPRESSION: No evidence of a hemodynamically significant carotid stenosis. C. 2D echo Conclusions: Normal left ventricular systolic function. Normal left ventricular cavity size. Normal left ventricular wall thickness. Ejection fraction is visually estimated at 65 %. Tissue Doppler/Mitral Doppler indices are within normal limits. Mild mitral leaflet calcification. Mild mitral annular calcification. Trace mitral regurgitation. Normal appearance of the tricuspid valve. The estimated Peak RVSP is 25 mmHg. There is trace tricuspid regurgitation. Hx of Present Illness 58-year-old female past medical history of hypertension, prior stroke 20 years ago, anxiety, debility wheelchair-bound for many years, who presents after having this morning was found on the ground confused. Patient has slowly improved back to baseline. Patient was recently admitted at our hospital 1 week ago for similar transient encephalopathy that improved. She was sent home with Zyprexa and was briefly seen by neurologist at that time who thoughts patient may be suffering from a toxic metabolic encephalopathy at that time. Family and patient state that the Zyprexa mildly help with sleeping symptoms but over the last 4 days the patient has not been herself she has been very weak unable to get out of her wheelchair. The patient does not recall events. No chest pain, shortness breath, upper lower GI bleeding, nausea vomiting, fever or chills. Apparently the family has also noticed a tremor, possibly on movements. Patient denies any headache. She denies any injuries from falling down. Hospital Course Patient was admitted to telemetry floor and ruled out for CVA and likely did not have signs of TIA. Patient still had some tremor at rest, but also was found with simple UTI and given antibiotics for that. Patient was back at baseline status, became more awake and alert. She tolerated her medications, vital signs are stable, labs are stable. The imaging studies as listed above did not show any acute abnormalities or findings. Patient will be discharged home today in improved condition. She is encouraged to continue taking her Zyprexa and we will give her antibiotics for simple UTI for a few more days. See below for full list of discharge medications. Home Meds Active Scripts Olanzapine* (Zyprexa*) 2.5 Mg Tablet, 2.5 MG PO BID for 14 Days, #30 TAB Prov:LINDSEY YEPEZ 10/27/18 Acetaminophen* (Tylenol*) 325 Mg Tablet, 650 MG PO Q6H PRN for .PAIN 1-3 OR TEMP for 5 Days, TAB Prov:DAVID MCGHEE MD 10/21/18 Lisinopril* (Lisinopril*) 5 Mg Tablet, 2.5 MG PO DAILY for 10 Days, #10 TAB Prov:DAVID MCGHEE MD 10/21/18 Reported Medications Calcium Carbonate* (Calcium Carbonate*) 600 MG Ca Tab, 600 MG PO BID, TAB 10/26/18 Discontinued Reported Medications Calcium Carbonate (CALCIUM) 600 Mg Tablet, 500 MG PO 09/18/12 Follow-up Plan Please take your medication as prescribed, see your doctor in clinic in the next 1 week. Primary Care Provider Jordon Kenney MD Time spent on discharge: > 30 minutes Pending Labs Laboratory Tests Test 10/26/18 13:15 10/26/18 19:01 10/27/18 08:38 Creatine Kinase 85 IU/L (23-200) 77 IU/L (23-200) Creatine Kinase 0.7 0.7 Index Creatinine Kinase 0.60 0.52 MB (Mass) ng/ml (0.0-2.4) ng/ml (0.0-2.4) Troponin I < 0.012 < 0.012 ng/ml (0.000-0.120) ng/ml (0.000-0.120 ) White Blood Count 5.5 10^3/ul (4.8-10.8) Red Blood Count 4.41 10^6/ul (4.20-5.40 ) Hemoglobin 14.2 g/dl (12.0-16.0) Hematocrit 43.3 % (37.0-47.0) Mean Corpuscular 98.2 Volume fl (82.0-101.0) Mean Corpuscular 32.2 Hemoglobin pg (29.0-33.0) Mean Corpuscular 32.8 Hemoglobin Concent g/dl (32.0-37.0) Red Cell 11.4 % (11.5-14.5) Distribution Width Platelet Count 262 10^3/UL (140-415) Mean Platelet 10.3 fl (7.4-10.4) Volume Immature 0.200 Granulocytes % % (0.001-0.429) Neutrophils % 67.8 % (39.0-77.0) Lymphocytes % 20.5 % (15.0-51.0) Monocytes % 8.5 % (0.0-11.0) Eosinophils % 2.5 % (0.0-7.0) Basophils % 0.5 % (0.0-2.0) Nucleated Red Blood 0.0 Cells % /100WBC (0.0-0.0) Immature 0.010 Granulocytes # 10^3/ul (0.0-0.031 ) Neutrophils # 3.7 10^3/ul (1.6-7.5) Lymphocytes # 1.1 10^3/ul (0.8-2.9) Monocytes # 0.5 10^3/ul (0.3-0.9) Eosinophils # 0.1 10^3/ul (0.0-0.5) Basophils # 0.0 10^3/ul (0.0-0.1) Nucleated Red Blood 0.0 Cells # 10^3/ul (0.0-0.0) Sodium Level 139 mmol/L (135-144) Potassium Level 4.3 mmol/L (3.5-5.1) Chloride Level 104 mmol/L (97-110) Carbon Dioxide 29 mmol/L (21-31) Level Anion Gap 6 (5-13) Blood Urea 10 mg/dl (7-20) Nitrogen Creatinine 0.61 mg/dl (0.44-1.00) Est Glomerular > 60 mL/min (>60) Filtrat Rate mL/min Glucose Level 124 mg/dl (70-220) Hemoglobin A1c 5.4 % (0-5.9) Calcium Level 9.2 mg/dl (8.4-10.2) Phosphorus Level 3.6 mg/dl (2.5-4.9) Magnesium Level 2.1 mg/dl (1.7-2.5) Triglycerides 100 mg/dl (0-149) Level Cholesterol Level 220 mg/dl (100-200) LDL Cholesterol, 159 mg/dl Calculated HDL Cholesterol 41 mg/dl (37-92) Cholesterol/HDL 5.3 RATIO Ratio Thyroid Stimulating 1.380 Hormone (TSH) MIU/L (0.465-4.680 ) LINDSEY YEPEZ Oct 27, 2018 13:12
[2018-10-27 15:27] VITALS: BP 113/72; PULSE 83; RESP 20
== END 2018-10-27 17:15 | disposition home or self-care (01) ==
LOC: E/R 08:14 → 6WM 10:45
PROVIDERS: ADMIT Hospitalist; ATTEND Hospitalist
DX: R25.1 Tremor, unspecified (principal); R41.82 Altered mental status, unspecified; N39.0 Urinary tract infection, site not specified; I10 Essential (primary) hypertension; Z86.73 Personal history of transient ischemic attack (TIA), and cerebral infarction without residual deficits; Z99.3 Dependence on wheelchair
CPT/HCPCS: 36415; 70450; 70551; 71045; 80048; 80053; 80061; 80307; 81001; 82550; 82553; 82962; 83036; 83735; 84100; 84436; 84439; 84443; 84479; 84484; 85025; 85610; 85730; 92610; 93005; 93306; 93880; 95819; J0696; J1644; J7030; Z7500; Z7502; Z7610; G0378